=== PATIENT | male | born 1975 | race Caucasian/White ===

== ENCOUNTER 2023-10-22 17:46 | Emergency (ER) | payer SELFPAY ==
[2023-10-22 17:55] VITALS: BP 137/76; PULSE 88; RESP 18; TEMP 98.1; BMI 31.0
[2023-10-22] MEDS ORDERED: ACETAMINOPHEN 500 MG TABLET (FP) ONE (18:23)
[2023-10-22] MEDS: ACETAMINOPHEN 325 MG TABLET (FP) PO ONE (18:26)
== END 2023-10-22 19:01 | disposition home or self-care (01) ==
LOC: JER 17:46 → JERFT 17:46
DX: L03.221 Cellulitis of neck (principal); R22.0 Localized swelling, mass and lump, head; L02.92 Furuncle, unspecified
CPT/HCPCS: 99283-25